=== PATIENT | female | born 1995 | race Two or more races ===

== ENCOUNTER 2016-04-16 17:31 | Emergency (ER) | payer BC, OTHER ==
[2016-04-16 17:38] VITALS: TEMP 98.6; O2SAT 97
--- NOTE | 2016-04-16 17:40 | EDPHY ---
H & P Stated Complaint: Swollen glands x 3 wks;seen at [facility] at that time Time Seen by Provider: 04/16/16 17:40 - Personal History LMP (Females 10-55): 8-14 Days Ago Current Tetanus Diphtheria and Acellular Pertussis (TDAP): Yes - Medical/Surgical History Other PMH: neg - Social History Smoking Status: Never smoked Constitutional: Initial Vital Signs Temperature (C) 37 C 04/16/16 17:35 Heart Rate 86 04/16/16 17:35 Respiratory Rate 16 04/16/16 17:35 Blood Pressure 125/83 H 04/16/16 17:35 O2 Sat (%) 97 04/16/16 17:35 O2 Delivery Mode Room Air Allergies/Adverse Reactions: No Known Allergies Allergy (Unverified 04/16/16 17:37) Home Medications: Medication Instructions Recorded Etonogestrel [Nexplanon] 68 mg SQ 04/16/16 predniSONE 40 mg PO DAILY #10 tab 04/16/16 Medical Decision Making ED Course/Re-evaluation: CHIEF COMPLAINT: Migraine, cervical pain. HISTORY OF PRESENT ILLNESS: The patient is a 20-year-old female with no migraine history who presents with frequent migraines and neck pain worsening over the past 3 weeks. 3 weeks ago she developed a migraine, posterior cervical lymphadenopathy, and general flu symptoms. She was seen at [facility] and had a negative [place]ius[place] test. Since that time her migraines have become more frequent and worse. She had a migraine earlier today. She admits associated neck pain and stiffness that is worsened when she lies flat. She denies other complaints at this time. REVIEW OF SYSTEMS: A 10 point review of systems was performed and is negative with the exception of the elements mentioned in the history of present illness. PHYSICAL EXAM: HR, BP, O2 Sat, RR. Temp noted General Appearance: Alert, well hydrated, appropriate, and non-toxic appearing. Head: Atraumatic without scalp tenderness or obvious injury Eyes: Pupils equal, round, reactive to light and accommodation, EOMI, no trauma , no injection. Ears: Clear bilaterally, no perforation, normal landmarks Nose: Atraumatic, no rhinorrhea, clear. Throat: There is no erythema or exudates, no lesions, normal tonsils, mucus membranes moist. Neck: Supple, 2+ carotid upstroke, nontender, no lymphadenopathy. Respiratory: No retractions, no distress, no wheezes, and no accessory muscle use. Lungs are clear to auscultation bilaterally. Cardiovascular: Regular rate and rhythm, no murmurs, rubs, or gallops. Bilateral carotid, radial, dorsalis pedis, and posterior tibial pulses intact. Good capillary refill all extremities. Gastrointestinal: Abdomen is soft, nontender, non-distended, no masses, no rebound, no guarding, no peritoneal signs. Musculoskeletal: Normal active ROM of all extremities, atraumatic. Neurological: Alert, appropriate, and interactive. The patient has normal DTRs and non-focal cranial nerves, motor, sensory, and cerebellar exam. Skin: No rashes, good turgor, no nodules on palpation. Past medical history:Denies. Past surgical history:Denies. Family history:Non-contributory. Social history:[employer] Student. DIAGNOSTICS/PROCEDURES/CRITICAL CARE TIME: Study: CT of the head/cervical spine. Indication: Migraine headache. Results: No source for pain identified. The study was read by the radiologist, Dr. Aguila. I viewed the images myself on the PACS system. DIFFERENTIAL DIAGNOSIS: The differential diagnosis for the patient's headache included but was not limited to subarachnoid hemorrhage, migraine headache, tension headache and infectious causes such as meningitis, pharyngitis and sinusitis. MEDICAL DECISION MAKIN-year-old female with no migraine history presenting with migraine headache and neck pain/stiffness. She initially got sick 3 weeks ago and had a negative [place] test at [facility]. Since then the headaches have become more frequent. On exam she has positive posterior cervical lymphadenopathy. Because the onset is 3 weeks ago I think meningitis is unlikely. We will obtain a head CT. An IV was established. 10mg IV Reglan administered for headache. 182: Head and neck CTs read negative by Dr. Aguila, radiology. I discussed this with the patient. She is comfortable going home and feels better after Reglan. I have written her a 5-day prescription for prednisone. She understands to follow up with neurology. - Data Points Medications Given: Discontinued Medications Metoclopramide HCl (Reglan Injection) 10 mg IVP EDNOW ONE Stop: 04/16/16 17:55 Last Admin: 04/16/16 18:23 Dose: 10 mg Departure - Departure Disposition: Home, Routine, Self-Care Clinical Impression: Neck pain Migraine Qualifiers: Migraine type: unspecified Status migrainosus presence: without status migrainosus Intractability: not intractable Qualified Code(s): G43.909 - Migraine, unspecified, not intractable, without status migrainosus Condition: Good Instructions: Migraine Headache (ED), Neck Pain (ED) Additional Instructions: Take Prednisone as prescribed. Call Dr. Bruno, neurology, tomorrow to set up a follow up appointment. Return to the emergency department for any serious worsening of condition. Referrals: Kamari Bruno DO [Doctor of Osteopathy] - As per Instructions Prescriptions: predniSONE 40 mg PO DAILY #10 tab Report Scribed for: Aldair Blanca Report Scribed by: Jonathan Causey Date of Report: 04/16/16 Time of Report: 17:43
[2016-04-16] MEDS ORDERED: METOCLOPRAMIDE 10 MG/2 ML VIAL IVP ONE (17:54)
[2016-04-16 19:14] VITALS: BP 115/77; PULSE 70; RESP 18
== END 2016-04-16 19:14 | disposition home or self-care (01) ==
DX: M54.2 Cervicalgia (principal); G43.909 Migraine, unspecified, not intractable, without status migrainosus
CPT/HCPCS: 96374; J2765